=== PATIENT | female | born 1990 | race Caucasian/White ===

== ENCOUNTER 2020-07-30 05:15 | Inpatient (IN) ==
[2020-07-30] MEDS ORDERED: SIMETHICONE 80 MG TAB.CHEW PO PRN (05:19)
[2020-07-30] MEDS ORDERED: Oxytocin/Ringers Lactate 20 UNITS/1,000 ML BAG IV ONE (05:19)
[2020-07-30] MEDS ORDERED: KETOROLAC TROMETHAMINE 30 MG/ML VIAL IV PRN (05:19)
[2020-07-30] MEDS ORDERED: diphenhydrAMINE HCL 25 MG CAPSULE PO PRN (05:19)
[2020-07-30] MEDS ORDERED: HYDROcodone/ACETAMINOPHEN 1 EACH TABLET PO PRN (05:19)
[2020-07-30] MEDS ORDERED: ONDANSETRON HCL/PF 2 MG/ML VIAL IV PRN (05:19)
[2020-07-30] MEDS ORDERED: BISACODYL 10 MG SUPP.RECT RC PRN (05:19)
[2020-07-30] MEDS ORDERED: SENNOSIDES 8.6 MG TABLET PO PRN (05:19)
[2020-07-30] MEDS: RINGER'S SOLUTION,LACTATED 1,000 ML IV PRN ×2 (05:45→06:50)
[2020-07-30] MEDS ORDERED: CLINDAMYCIN IN 0.9 % SOD CHLOR 600 MG/50 ML BAG IV PRN (07:10)
[2020-07-30] MEDS ORDERED: GENTAMICIN SULFATE 400 MG in DEXTROSE 5 % IN WATER 100 ML IV PRN ×2 (07:10)
--- NOTE | 2020-07-30 07:55 | ANES ---
Anesthesia Pre Procedure Eval Vitals/Labs: Last Vital Signs Temp 36.7 C 07/30/20 07:36 Pulse 100 07/30/20 07:36 Resp 18 07/30/20 07:36 BP 121/77 07/30/20 07:36 Pulse Ox 97 07/30/20 07:36 HOME MEDICATIONS vitamins no.121-iron 28 mg-folic acid 800 mcg tablet 1 tab PO DAILY tab 11/06/18 [Last Taken Unknown] acetone (urine) test See Rx Instructions .ROUTE .MEDSUPPLY #100 ea 06/17/20 [Last Taken Unknown] blood sugar diagnostic See Rx Instructions [id number] .MEDSUPPLY #100 ea 06/17/20 [Last Taken Unknown] blood-glucose meter See Rx Instructions [id number] .MEDSUPPLY #1 ea 06/17/20 [Last Taken Unknown] lancets 30 gauge See Rx Instructions [id number] .MEDSUPPLY #100 ea 06/17/20 [Last Taken Unknown] albuterol sulfate 90 mcg/actuation aerosol inhaler 2 inh INHALATION Q4H PRN #8.5 g 06/21/20 [Last Taken Unknown] Allergies/Adverse Reactions: Allergies Allergy/AdvReac Type Severity Reaction Status Date / Time Penicillins Allergy Severe anaphylacti Verified 07/30/20 05:24 c - Planned Procedure Planned Procedure: Repeat Ceasarean Section Medication List Reviewed:: Yes Allergies Verified: Yes Medical History (Last Reviewed 07/30/20 @ 07:54 by Bharat Jimenez CRNA) Gestational diabetes mellitus (GDM) (Acute) Onset Date: 06/17/20 The patient did not bring any FSBS Asthma as a child Eczema Irregular menses Anxiety and depression Onset Date: ~2013 Gestational diabetes Onset Date: ~2010 Surgical History (Last Reviewed 07/30/20 @ 07:54 by Bharat Jimenez CRNA) Previous section 2015 Family History (Last Reviewed 07/30/20 @ 07:54 by Bharat Jimenez CRNA) Mother Cancer breast x2 - Family Anesthesia History Family History:: no untoward family reactions to anesthesia, no familial bleeding tendencies, no family history of clotting disorders, no family history of premature - Airway/Neck/Teeth Teeth Condition: missing Mallampatti Score: 2 Thyromental (T-M) distance: > 6 cm Mandibulo Hyoid distance: > 3 cm - Respiratory Respiratory Physical: lungs clear Discussed smoking cessation including day of surgery: No Sleep Apnea currently treated: No Sleep Apnea by current assessment: No Discussed Risks/Treatment of EDUARDO: No - Cardiovascular Tolerate Activity: Good Heart Sounds: S1 & S2, Regular - Gastrointestinal NPO since: mn - Anesthesia Assessment and Plan ASA Class: PS, II Anesthesia Type Plan: Block - Bilateral ultrasound guided TAP blocks for postop analgesia, Spinal
[2020-07-30 07:56] LABS: Cocaine Ur Negative (NEGATIVE); Urine Barbiturate Negative (NEGATIVE); Urine Benzodiazepines Negative (NEGATIVE); Urine Opiates Negative (NEGATIVE); Urine PCP Negative (NEGATIVE)
[2020-07-30 07:57] LABS: Urine THC Positive (NEGATIVE)
[2020-07-30] MEDS ORDERED: fentaNYL CITRATE/PF 50 MCG/ML AMPUL ONE (07:58)
[2020-07-30] MEDS ORDERED: PROPOFOL VIAL IV ONE (07:58)
[2020-07-30] MEDS ORDERED: ONDANSETRON HCL/PF 2 MG/ML VIAL ONE (07:58)
[2020-07-30] MEDS ORDERED: MIDAZOLAM HCL/PF 5 MG/ML VIAL ONE (07:58)
[2020-07-30] MEDS ORDERED: BUPIVACAINE HCL/EPINEPHRINE 50 ML VIAL ONE (07:58)
[2020-07-30] MEDS ORDERED: RINGER'S SOLUTION,LACTATED 1,000 ML IV PRN (09:16)
--- NOTE | 2020-07-30 10:17 | OR ---
Operative Report - Dictated Report Narrative: Date of delivery: 07/30/2020 Time of delivery: 907 Gender: male weight: 2931 grams APGARS: 06/02 Preoperative diagnosis: IUP at 39w 0d, history of delivery x1, marijuana use during , GBS positive with PCN allergy at high risk for anaphylaxis, Rh positive, history of asthma, GDM Postoperative diagnosis: same Procedure: repeat delivery Surgeon: Dr. Newton Anesthesia: Spinal Anesthesiologist: Bharat Jimenez CRNA Description of the procedure: The patient was taken to the operating room where spinal anesthesia was induced. She was then prepped and draped in the supine position in the standard surgical fashion. A Pfannestiel skin incision was made. The incision was carried through the subcutaneous tissue. The fascia was incised in the midline and significant scar tissue was noted within the fascia. The fascia was from the underlying rectus muscle. The fascia was densely adherent to the underlying rectus muscle. A defect in the midline allowed entry into the peritoneal cavity easily. A large Arvind retractor was placed in the abdomen. The uterus was incised in a low transverse fashion. The uterine incision was extended bluntly. The membranes were ruptured and clear fluid was noted. The head was delivered. The shoulders delivered without any difficulty followed by the rest of the infant. The cord was clamped and cut. Cord blood was collected. The placenta was delivered by expression and appeared intact. The uterus was cleared of all clots and debris. The uterine incision was closed with 0-vicryl. A second imbricating layer of 0-vicryl was placed as well. Additional hemostasis was obtained with a figure of eight suture. The uterine incision was inspected and appeared hemostatic. The fascia and subfascial tissues were inspected for hemostasis. A figure of eight was placed near the fascia on the left for hemostasis. Hemostasis was adequate. The fascia was closed with 1-0 vicryl. The subcutaneous tissue was irrigated and made hemostatic. The space was closed with 2-0 vicryl. The skin was closed with 3-0 monocryl on a Reggie needle. All sponge, lap, and needle counts were correct. The patient tolerated the procedure well. She was transferred to the recovery room in stable condition. EBL: 400 mL Complications: none Specimens: cord blood History for Definition: * The number of deliveries resulting in a live the patient experienced prior to current hospitalization * The previous delivery of live twins or any live multiple gestation is considered one live event. *If primagravida or nulliparous is documented select zero for the number of previous live births. Live Events: 1
--- NOTE | 2020-07-30 10:22 | ANES ---
Post Anesthesia Discharge - Transfer of Care Transfer of Care handoff given to nurse: Yes - Discharge from PACU Discharge from PACU when meets criteria: Yes - Discharge to ASU Discharge to ASU-no complications/pt stable: Yes
--- NOTE | 2020-07-30 10:23 | ANES ---
Anesthesia Procedure Note Procedure Note: ANESTHESIA PROCEDURE NOTE Date of Procedure: 07/30/2020. Time of procedure: 1000. Performed by: Bharat Jimenez CRNA Voice Over Announcer: None. Preprocedure diagnosis: Repeat . Post procedure diagnosis: Same. Procedure: Bilateral ultrasound-guided transversus abdominis plane block for postop analgesia. Indications: The patient is a 29-year-old female post section. Findings: See below. Details of the procedure: ChloraPrep was used on the patient's abdomen and the procedure was performed under sterile technique. The right abdominal fascial layer between the internal oblique muscle and the transversus abdominis muscles was identified under ultrasound guidance. A 21-gauge 4 inch block needle was inserted under ultrasound guidance to the target fascial plane. 15 mL's of 0.5% bupivacaine plus epinephrine 1:200,000 was injected after negative aspiration for blood. The needle was removed intact and the procedure was then repeated at the left side. No complications were noted. The images were retained in the hospital medical database. EBL: Minimal. Fluids: N/A. Specimen: N/A. Post procedure condition: The patient tolerated the procedure well. No complications were noted. Thank you for this consultation. Bharat Jimenez CRNA
[2020-07-30] MEDS: DOCUSATE SODIUM 100 MG CAPSULE PO SCH ×2 (11:20→21:21)
[2020-07-30] MEDS: IBUPROFEN 800 MG TABLET PO PRN ×2 (11:20→21:21)
--- NOTE | 2020-07-30 12:39 | ANES ---
Post Anesthesia Assessment - Vital Signs Vitals: Last Vital Signs Temp 36.8 C 07/30/20 10:20 Pulse 89 07/30/20 10:29 Resp 18 07/30/20 10:29 BP 135/61 07/30/20 10:29 Pulse Ox 100 07/30/20 10:29 Airway Patency: Normal - Mental Status Level Of Consciousness: Awake - Pain Level Pain Score: 0 - N/V Assessment Nausea/Vomiting Presence: None Dehydration:: No
[2020-07-30] MEDS: HYDROcodone/ACETAMINOPHEN 1 EACH TABLET PO PRN ×2 (15:33→21:21)
[2020-07-31] MEDS: HYDROcodone/ACETAMINOPHEN 1 EACH TABLET PO PRN ×3 (04:42→18:21)
[2020-07-31] MEDS: IBUPROFEN 800 MG TABLET PO PRN ×3 (04:42→18:21)
[2020-07-31] MEDS ORDERED: CLINDAMYCIN IN 0.9 % SOD CHLOR 600 MG/50 ML BAG IV PRN (06:00)
[2020-07-31] MEDS ORDERED: GENTAMICIN SULFATE 400 MG in DEXTROSE 5 % IN WATER 100 ML IV PRN ×2 (06:00)
[2020-07-31] MEDS: DOCUSATE SODIUM 100 MG CAPSULE PO SCH ×2 (10:56→20:23)
--- NOTE | 2020-07-31 12:40 | PN ---
Subjective - Date and Time Seen Date: 07/31/20 Time: 12:38 Subjective Narrative: Patient without complaints Objective Objective Narrative: See vital signs - Review of Systems Generalized/Overall Review: Reports: No Symptoms Reported Misc: All systems neg except as marked - Vitals Vitals: Last Vital Signs Temp 36.5 C 07/31/20 07:34 Pulse 73 07/31/20 07:34 Resp 18 07/31/20 07:34 BP 119/54 07/31/20 07:34 Pulse Ox 99 07/31/20 07:34 - Exam Constitutional: Present: Alert, Oriented x3, Cooperative, No distress ENT Exam: Present: hearing grossly normal Neck: Present: normal inspection Abdomen: Present: soft, nontender, nondistended - Dressing c/d/i /Rectal: Present: Exam deferred Extremity: Present: non-tender, no calf tenderness Skin Exam: Present: normal color, warm/dry, no cyanosis Neurologic: Present: alert, normal mood/affect, oriented x 3 Appearance: Present: appropriate appearance, appropriate insight, neat, no memory impairment Eye contact: Present: cooperative, good eye contact, normal speech Thoughts: Present: normal thought pattern Cauti Physician Documentation - Urinary Catheter Management Urethral (Castillo) Urethral Indwelling: No Date of Insertion: 07/30/20 Time of Insertion: 08:50 Date of Removal: 07/30/20 Time of Removal: 20:05 Assessment/Plan Plan Narrative: POD 1 s/p repeat delivery Doing well Nicotine patch Depo-Provera for contraception Discharge tomorrow
[2020-07-31] MEDS ORDERED: ALBUTEROL SULFATE 200 PUFF INHALER IH PRN (12:46)
[2020-07-31] MEDS ORDERED: MEDROXYPROGESTERONE ACET 150 MG/ML SYRG IM ONE (12:47)
[2020-07-31] MEDS ORDERED: NICOTINE 14 MG PATC TD SCH (13:00)
[2020-08-01] MEDS: IBUPROFEN 800 MG TABLET PO PRN ×2 (01:35→09:04)
[2020-08-01] MEDS: HYDROcodone/ACETAMINOPHEN 1 EACH TABLET PO PRN ×2 (01:35→09:04)
[2020-08-01] MEDS: DOCUSATE SODIUM 100 MG CAPSULE PO SCH (09:05)
--- NOTE | 2020-08-01 10:44 | PN ---
Subjective - Date and Time Seen Date: 08/01/20 Time: 10:42 Subjective Narrative: Patient without complaints Objective Objective Narrative: See vital signs - Review of Systems Generalized/Overall Review: Reports: No Symptoms Reported Misc: All systems neg except as marked - Vitals Vitals: Last Vital Signs Temp 36.8 C 08/01/20 08:53 Pulse 84 08/01/20 08:53 Resp 16 08/01/20 08:53 BP 118/75 08/01/20 08:53 Pulse Ox 98 08/01/20 08:53 - Exam Constitutional: Present: Alert, Oriented x3, Cooperative, No distress ENT Exam: Present: hearing grossly normal Neck: Present: normal inspection Abdomen: Present: soft, nontender, nondistended - incision c/d/i Extremity: Present: non-tender, no calf tenderness Skin Exam: Present: normal color, warm/dry, no cyanosis Neurologic: Present: alert, normal mood/affect, oriented x 3 Appearance: Present: appropriate appearance, appropriate insight, neat, no memory impairment Eye contact: Present: cooperative, good eye contact, normal speech Thoughts: Present: normal thought pattern Cauti Physician Documentation - Urinary Catheter Management Urethral (Castillo) Urethral Indwelling: No Date of Insertion: 07/30/20 Time of Insertion: 08:50 Date of Removal: 07/30/20 Time of Removal: 20:05 Assessment/Plan Plan Narrative: POD 2 s/p repeat delivery Doing well Discharge today
--- NOTE | 2020-08-01 10:49 | DS ---
OB Discharge Summary (1) Status post repeat low transverse section Status: Acute (2) Asthma Status: Acute Qualifiers: Asthma severity: mild Asthma persistence: intermittent Asthma complication type: unspecified Qualified Code(s): J45.20 - Mild intermittent asthma, uncomplicated (3) Gestational diabetes mellitus (GDM) Status: Acute Qualifiers: Gestational diabetes mellitus control: unspecified Trimester: third trimester Qualified Code(s): O24.419 - Gestational diabetes mellitus in , unspecified control (4) History of delivery Status: Acute (5) Marijuana use Status: Acute (6) Normal Pap smear Status: Acute (7) COVID-19 Status: Acute Delivery Date: 07/30/20 Delivery Time: 09:08 :: 4 Para:: 2 Gestational weeks:: 39 Gestational days:: 0 Intrapartum Procedures: Delivery-Low Transverse, Anesthesia - Spinal Procedures: None Discharge Diagnosis: Term -Delivered, GDM - Oral Dependent - Discharge Information Date of Discharge: 08/01/20 Discharge Location: Home Disposition: Home self-care Condition: Good Activity on Discharge:: Activity as tolerated, Pelvic Rest Discharge Diet: General/regular food Additional Patient Instructions (free text): Deepali your follow up appointment is scheduled for September 09 @ 2:[address] Newton. Please never hesitate to call if you have any questions or concerns. [facility] [address] [phone] [facility] [phone] Prescriptions (Any new or edited meds): HYDROcodone/ACETAMINOPHEN [[place] 5-325] 1 ea PO Q6H PRN 5 Days #14 tab PRN Reason: Moderate Pain (Pain Scale 4-6) Transmission Status: Received by [facility] #[id number] Complete Home Medications List: Complete Home Medication List: vitamins no.121-iron 28 mg-folic acid 800 mcg tablet 1 tab PO DAILY tab 11/06/18 albuterol sulfate 90 mcg/actuation aerosol inhaler 2 inh INHALATION Q4H PRN #8.5 g 06/21/20 Docusate Sodium [Colace] 100 mg PO BID cap 07/31/20 HYDROcodone/ACETAMINOPHEN [[place] 5-325] 1 ea PO Q6H PRN 5 Days #14 tab 07/31/20 Ibuprofen [Motrin] 800 mg PO Q6H PRN tab 07/31/20 Nicotine [Nicoderm] 14 mg TD Q24H patch.td24 07/31/20 - Plan Discharge to:: Home Comment:: Routine Discharge Instructions Follow up in office in:: 6 weeks - Information Weight (Grams): 2,931 Infant Sex: Male Score 1 min: 9 Score 5 min: 9 Circumcision: No Infant Complications: None
[2020-08-01 14:23] VITALS: BP 136/70
== END 2020-08-01 13:15 | disposition home or self-care (01) | DRG 786 ==
LOC: MS 05:15
PROVIDERS: ADMIT Obstetrics & Gynecology; ATTEND Obstetrics & Gynecology